=== PATIENT | female | born 1950 | race Caucasian/White ===

== ENCOUNTER 2022-07-30 00:22 | Emergency (ER) | payer MEDICARE, SELFPAY ==
[2022-07-30 00:42] VITALS: BP 146/74; PULSE 82; RESP 16; TEMP 36.3; O2SAT 97; BMI 42.0
[2022-07-30 01:31] LABS: Basophils Absolute Auto 0.03 K/uL (0.00-0.30); Basophils Percent Auto 0.3 % (0.0-3.0); Eosinophils Absolute Auto 0.18 K/uL (0.00-0.50); Eosinophils Percent Auto 1.8 % (0.0-7.0); Hematocrit 42.1 % (33.0-51.0); Hemoglobin* 13.3 gm/dL (12.0-16.0); Immature Granulocytes Abs Auto 0.07 K/uL (0.00-0.30); Immature Granulocytes Pct Auto 0.7 %; Lymphocytes Percent Auto 15.5 % (20-44); Mean Corpuscular HGB Conc 32 gm/dL (32-36); Mean Corpuscular Hemoglobin 25 pg (26-34); Mean Corpuscular Volume 80 fL (80-100); Monocytes Percent Auto 9.2 % (0.0-11.0); Neutrophils Percent Auto 72.5 % (42.0-72.0); Platelet Count* 341 K/uL (140-440); RDW Coefficient of Variation % 13.9 % (11.5-15.5); Red Blood Count 5.25 m/uL (4.00-5.20); White Blood Count* 9.81 K/uL (4.50-11.00)
[2022-07-30 01:32] LABS: Slide Review Reflex No
[2022-07-30 01:42] LABS: Chloride* 107 mmol/L (96-114)
[2022-07-30 01:43] LABS: Potassium* 4.5 mmol/L (3.6-5.1); Sodium* 138 mmol/L (135-149)
[2022-07-30 01:45] LABS: Creatinine* 0.8 mg/dL (0.5-1.5); Est. Creatinine Clearance* 42.07; Estimated Glomerular Filt Rate 78 ml/min
[2022-07-30 01:46] LABS: Blood Urea Nitrogen* 21 mg/dL (7-30); Calcium* 9.4 mg/dL (8.4-10.6); Carbon Dioxide* 21 mmol/L (20-32); Glucose* 249 mg/dL (60-115)
[2022-07-30 01:49] LABS: C Reactive Protein* 4.7 mg/dL (0.5-1.0)
[2022-07-30 02:04] LABS: Procalcitonin* 0.09 ng/mL (<0.50)
[2022-07-30 02:30] VITALS: BP 152/61; PULSE 80; RESP 16; O2SAT 96; O2SAT 97
[2022-07-30] MEDS: fentaNYL 100 MCG/2 ML inj 50 MCG IVP (02:31)
[2022-07-30 03:36] VITALS: BP 121/61; PULSE 84; RESP 16
--- NOTE | 2022-07-30 09:10 | ED.SKABFB ---
HPI - Skin/Abscess/Foreign Bdy General Chief complaint: Skin/Abscess/Foreign Body Stated complaint: Left Leg Pain, cellulitis Time Seen by Provider: 07/30/22 00:51 History of Present Illness HPI narrative: 72-year-old woman presenting to the emergency department with complaint of a burning pain and concern of infection in her left lower leg. She has not had any fever. There has been no drainage from this area. Was apparently seen last week and initiated on cephalexin and after I believe 2 days was transitioned to Bactrim after calling in and noting that not improving. She has had about 3 days of Bactrim. Three days ago started to notice a ?blister? as well on the left mid estevez area. Pain continues to escalate. Notes a history of some peripheral edema and what sounds like related darkening. There was also a ?spider bite? with still with lingering discomfort at times in the right leg. She is worried further about infection understandably due to history of diabetes. Related Data Home Medications Medication Instructions Recorded Confirmed amlodipine 5 mg tablet mg 07/30/22 blood sugar diagnostic (OneTouch 07/30/22 07/30/22 Ultra Test strips) dorzolamide 2 % eye drops drp 07/30/22 furosemide 20 mg tablet mg 07/30/22 glipizide 10 mg tablet, extended mg PO 07/30/22 release 24 hr losartan 100 mg tablet mg 07/30/22 metformin 500 mg tablet,extended mg PO 07/30/22 release 24 hr pravastatin 20 mg tablet mg 07/30/22 sitagliptin phosphate 100 mg mg 07/30/22 tablet (Januvia) sulfamethoxazole 800 tab 07/30/22 mg-trimethoprim 160 mg tablet Previous Rx's Medication Instructions Recorded sulfamethoxazole 800 1 tab PO BID 4 days #8 tabs 07/30/22 mg-trimethoprim 160 mg tablet (Bactrim DS) Allergies Allergy/AdvReac Type Severity Reaction Status Date / Time No Known Drug Allergies Allergy Verified 07/30/22 00:40 Review of Systems Status of ROS: Reports: 10 or more systems reviewed and unremarkable except as noted in History and below [facility] Social History Smoking Status: Never smoker Do you use any of these nicotine containing products: None Second hand tobacco smoke exposure: No How often do you have a drink containing alcohol: never How often do you have six or more drinks on one occasion: Never AUDIT-C Alcohol total score: 0 Non-prescribed substance use: denies use service: No Exam Narrative: Exam Narrative: Pleasant. Mildly anxious I think clearly rather uncomfortable. Is breathing easily. Slight darkening on the anterior right lower leg with subtle depression consistent with ex formation once upon a time. There is mild hemosiderin deposition with mild lower extremity edema here. The left leg, the leg in more question here today, has a hand sized area of mild erythema and mild calor in the mid estevez which is nearly fully circumferential around the leg. Exquisitely tender to palpation. She looks to have been placing some antibiotic ointment upon it as it is slightly greasy. On the medial edge of this estevez in the center of this erythema is a marble-sized swelling that is generally tense and exquisitely tender. Very subtle appearance of what might be a white punctum or 2 indicating possible purulence. Initial evaluation though I could not appreciate any fluctuant tissue. She is so tender it is hard to tell. She is moving all extremities without difficulty. Const: Vital Signs, click to edit/add: Vital Signs - 24 hr 07/30/22 00:42 07/30/22 02:30 07/30/22 03:36 Temperature 97.3 F L Pulse Rate [Left] 82 80 84 Respiratory Rate 16 16 16 Blood Pressure [Le ft Upper Arm] 146/74 H 152/61 H 121/61 Pulse Oximetry 97 97 Oxygen Delivery Me thod Room Air Documenting provider has reviewed patient's vital signs: yes Course Vital Signs Vital signs: Initial Vital Signs Temperature 97.3 F L 07/30/22 00:42 Temperature Source Temporal Artery Scan 07/30/22 00:42 Pulse Rate 82 07/30/22 00:42 Respiratory Rate 16 07/30/22 00:42 Blood Pressure 146/74 H 07/30/22 00:42 Blood Pressure Mean 98 07/30/22 00:42 Pulse Oximetry 97 07/30/22 00:42 Oxygen Delivery Method 07/30/22 00:42 Vital Signs Temperature 97.3 F L 07/30/22 00:42 Pulse Rate 82 07/30/22 00:42 Respiratory Rate 16 07/30/22 00:42 Blood Pressure 146/74 H 07/30/22 00:42 Pulse Oximetry 97 07/30/22 00:42 Oxygen Delivery Method 07/30/22 00:42 Temperature 97.3 F L 07/30/22 00:42 Pulse Rate 84 07/30/22 03:36 Respiratory Rate 16 07/30/22 03:36 Blood Pressure 121/61 07/30/22 03:36 Pulse Oximetry 97 07/30/22 02:30 Oxygen Delivery Method 07/30/22 00:42 MDM - Skin/Abscess/Foreign Bdy MDM Narrative Medical decision making narrative: I propose checking some labs and puzzled about this swelling. So tender almost like an erythema nodosum but there has been no precipitant to cause that; no sore throat or other illness like this. Return later to re-evaluate. There is a subtle fluctuance medial aspect of this swelling. I then place a bedside ultrasound and does appear to have marble-sized area of fluid collection heterogeneous within a cm and half of the surface. Surrounding edematous tissue. White count is not elevated however CRP is elevated at 4.7. Procalcitonin is normal IV has already been established. Anticipating intervention at least needling looking for purulence perhaps, I offer some pain medication in the form of fentanyl. She decides to proceed with that. Cleansing the area with Betadine, I had anticipated plunging an 11 blade however perhaps better course of action is an 18 gauge needle. Easily remove quickly an mL and a half of tanya purulence. And then place lidocaine with epinephrine further anesthesia. Incise the wound a little more with an 11 blade to total of about a cm in diagonal length. Expressing further small amount of purulence until only blood. I do not feel that would be a good idea to dig around to break up loculations here due to pain in generally not much depth. Unusual location for abscess I think given general lack of depth as well. Wound culture was collected. Pending results would continue on Bactrim. Lab Data Attestation: I reviewed the patient's lab results. Labs: Lab Results 07/30/22 07/30/22 Range/Units 01:20 01:20 WBC 9.81 (4.50-11.00) K/uL RBC 5.25 H (4.00-5.20) m/uL Hgb 13.3 (12.0-16.0) gm/dL Hct 42.1 (33.0-51.0) % MCV 80 (80-100) fL MCH 25 L (26-34) pg MCHC 32 (32-36) gm/dL RDW Coeff of Katie 13.9 (11.5-15.5) % Plt Count 341 (140-440) K/uL Neut % (Auto) 72.5 H (42.0-72.0) % Lymph % (Auto) 15.5 L (20-44) % [place] % (Auto) 9.2 (0.0-11.0) % Eos % (Auto) 1.8 (0.0-7.0) % Baso % (Auto) 0.3 (0.0-3.0) % Neut # (Auto) 7.10 H (1.7-7.0) K/uL Lymph # (Auto) 1.50 (0.90-2.90) K/uL [place] # (Auto) 0.90 (0.00-0.90) K/UL Eos # (Auto) 0.18 (0.00-0.50) K/uL Baso # (Auto) 0.03 (0.00-0.30) K/uL Sodium 138 (135-149) mmol/L Potassium 4.5 (3.6-5.1) mmol/L Chloride 107 (96-114) mmol/L Carbon Dioxide 21 (20-32) mmol/L BUN 21 (7-30) mg/dL Creatinine 0.8 (0.5-1.5) mg/dL Estimated Creat Clear 42.07 Estimated GFR 78 ml/min Glucose 249 H (60-115) mg/dL Calcium 9.4 (8.4-10.6) mg/dL C-Reactive Protein 4.7 H (0.5-1.0) mg/dL Procalcitonin 0.09 (<0.50) ng/mL Discharge Plan Discharge Clinical Impression: Cellulitis, Abscess of left leg Patient Disposition: Home w/ Parent or Adult Condition: Improved Instructions: Cellulitis (ED), Abscess Incision and Drainage (DC) Additional Instructions: Hopefully draining this abscess will get things going the right direction. I would keep taking the Bactrim for now. We will call you if Bactrim is not the right drug depending on the wound culture. Otherwise once you get to the end of the Bactrim prescription go to the pharmacy and cloth picker the remainder of the course. Do your best to keep your leg elevated at rest. Depending on how much ooze comes out of the wound, change dressing daily. Return for marked increase in pain, swelling, redness, pain that does not resolve after 2 hours of good elevation. Do report fever. Prescriptions: New sulfamethoxazole-trimethoprim [Bactrim DS] 800-160 mg tablet 1 tab PO BID 4 Days Qty: 8 0RF No Action glipizide 10 mg tablet extended release 24hr PO Label Comments: TAKE TWO TABLETS BY MOUTH DAILY (DME) OneTouch Ultra Test Strip MISCELLANEOUS Label Comments: use to TEST 1-2 TIMES DAILY amlodipine 5 mg tablet Label Comments: TAKE ONE TABLET BY MOUTH ONE TIME DAILY sulfamethoxazole-trimethoprim 800-160 mg tablet Label Comments: TAKE ONE TABLET BY MOUTH TWICE DAILY FOR 7 DAYS pravastatin 20 mg tablet Label Comments: TAKE ONE TABLET BY MOUTH ONE TIME DAILY AT BEDTIME furosemide 20 mg tablet Label Comments: TAKE ONE TABLET BY MOUTH EVERY DAY IN THE MORNING. losartan 100 mg tablet Label Comments: TAKE ONE TABLET BY MOUTH ONE TIME DAILY metformin 500 mg tablet extended release 24 hr PO Label Comments: TAKE TWO TABLETS BY MOUTH TWICE DAILY WITH FOOD dorzolamide 2 % drops Label Comments: Place 1 Drop into right eye 3 times daily Januvia 100 mg tablet Label Comments: TAKE ONE TABLET BY MOUTH ONE TIME DAILY Follow Up/Referrals: Ema Parsons MD [Primary Care Provider] - Stand Alone [facility]
== END 2022-07-30 03:37 | disposition home or self-care (01) ==
PROVIDERS: Emergency Provider Family Medicine; PCP Family Medicine
DX: L03.116 Cellulitis of left lower limb (principal); L02.416 Cutaneous abscess of left lower limb
CPT/HCPCS: 10060; 36415; 80048; 84145; 85025; 86140; 87070; 94761; 96374; 99284; J3010

== ENCOUNTER 2022-08-23 08:00 | Outpatient (CLI) | payer MEDICARE, SELFPAY | END 2022-08-23 08:01 | disposition home or self-care (01) | PROVIDERS: PCP Family Medicine; Visit Provider Nurse Practitioner Family | DX: E11.622 Type 2 diabetes mellitus with other skin ulcer (principal); I87.2 Venous insufficiency (chronic) (peripheral); L97.322 Non-pressure chronic ulcer of left ankle with fat layer exposed; Z79.84 Long term (current) use of oral hypoglycemic drugs | CPT/HCPCS: 11042; 99213 ==

== ENCOUNTER 2022-08-30 10:17 | Outpatient (CLI) | payer MEDICARE, SELFPAY | END 2022-08-30 10:18 | disposition home or self-care (01) | LOC: WOUND 10:17 | PROVIDERS: PCP Family Medicine; Visit Provider Nurse Practitioner Family | DX: I87.312 Chronic venous hypertension (idiopathic) with ulcer of left lower extremity (principal); E11.622 Type 2 diabetes mellitus with other skin ulcer; L97.322 Non-pressure chronic ulcer of left ankle with fat layer exposed; Z79.84 Long term (current) use of oral hypoglycemic drugs | CPT/HCPCS: 11042 ==

== ENCOUNTER 2022-09-06 10:25 | Outpatient (CLI) | payer MEDICARE, SELFPAY | END 2022-09-06 10:26 | disposition home or self-care (01) | LOC: WOUND 10:25 | PROVIDERS: PCP Family Medicine; Visit Provider Nurse Practitioner Family | DX: I87.312 Chronic venous hypertension (idiopathic) with ulcer of left lower extremity (principal); E11.622 Type 2 diabetes mellitus with other skin ulcer; L97.822 Non-pressure chronic ulcer of other part of left lower leg with fat layer exposed; Z79.84 Long term (current) use of oral hypoglycemic drugs; Z79.85 Long-term (current) use of injectable non-insulin antidiabetic drugs | CPT/HCPCS: 11042 ==

== ENCOUNTER 2022-09-13 10:16 | Outpatient (CLI) | payer MEDICARE, SELFPAY | END 2022-09-13 10:17 | disposition home or self-care (01) | LOC: WOUND 10:16 | PROVIDERS: PCP Family Medicine; Visit Provider Nurse Practitioner Family | DX: I87.312 Chronic venous hypertension (idiopathic) with ulcer of left lower extremity (principal); L97.322 Non-pressure chronic ulcer of left ankle with fat layer exposed; I87.2 Venous insufficiency (chronic) (peripheral) | CPT/HCPCS: 11042 ==

== ENCOUNTER 2022-09-27 10:16 | Outpatient (CLI) | payer MEDICARE, SELFPAY | END 2022-09-27 10:17 | disposition home or self-care (01) | LOC: WOUND 10:17 | PROVIDERS: PCP Family Medicine; Visit Provider Nurse Practitioner Family | DX: E11.622 Type 2 diabetes mellitus with other skin ulcer (principal); L97.322 Non-pressure chronic ulcer of left ankle with fat layer exposed; I87.2 Venous insufficiency (chronic) (peripheral); Z79.84 Long term (current) use of oral hypoglycemic drugs; Z79.85 Long-term (current) use of injectable non-insulin antidiabetic drugs | CPT/HCPCS: 99212 ==

== ENCOUNTER 2023-09-06 10:15 | Outpatient (RCR) | payer MEDICARE, SELFPAY | END 2024-01-04 23:59 | disposition home or self-care (01) | PROVIDERS: PCP Family Medicine; Visit Provider Family Medicine | DX: R10.32 Left lower quadrant pain (principal); Z51.89 Encounter for other specified aftercare | CPT/HCPCS: 97110; 97140; 97162 ==

== ENCOUNTER 2023-09-21 21:47 | Emergency (ER) | payer MEDICARE, SELFPAY ==
[2023-09-21 22:11] VITALS: BP 153/67; PULSE 93; RESP 22; TEMP 36.7; O2SAT 95; BMI 40.1
[2023-09-21] MEDS: DOCUSATE SODIUM/BENZOCAINE 5 ML ENEMA PR ×2 (22:35→23:03)
--- NOTE | 2023-09-21 22:47 | ED_ITS ---
HPI - General Adult General Date Seen: 09/21/23 Chief complaint: Constipation Stated complaint: Post-surgery- Constipated and now has hemorrhoid. Time Seen by Provider: 09/21/23 22:28 Source: patient Mode of arrival: ambulatory Limitations: no limitations History of Present Illness HPI narrative: Patient is a 73-year-old woman who had thyroid surgery on September 12. She says she has been taking a lot of pain medications and has been unable to have a bowel movement since her surgery. She does not have significant abdominal pain, nausea or vomiting. She has rectal pain which she attributes to hemorrhoids. She has not had fevers, difficulty breathing, or other complaints. Surgery was for thyroid cancer. Related Data Home Medications Medication Instructions Recorded Confirmed amlodipine 5 mg tablet mg 07/30/22 blood sugar diagnostic (OneTouch 07/30/22 07/30/22 Ultra Test strips) dorzolamide 2 % eye drops drp 07/30/22 furosemide 20 mg tablet mg 07/30/22 glipizide 10 mg tablet, extended mg PO 07/30/22 release 24 hr losartan 100 mg tablet mg 07/30/22 metformin 500 mg tablet,extended mg PO 07/30/22 release 24 hr pravastatin 20 mg tablet mg 07/30/22 sitagliptin phosphate 100 mg mg 07/30/22 tablet (Januvia) sulfamethoxazole 800 tab 07/30/22 mg-trimethoprim 160 mg tablet Previous Rx's Medication Instructions Recorded sulfamethoxazole 800 1 tab PO BID 4 days #8 tabs 07/30/22 mg-trimethoprim 160 mg tablet (Bactrim DS) Allergies Allergy/AdvReac Type Severity Reaction Status Date / Time No Known Drug Allergies Allergy Verified 09/21/23 22:14 Review of Systems Status of ROS: Reports: 6 or more systems reviewed and unremarkable except as noted in History and below PFSH PFS Social History Smoking Status: Never smoker Do you use any of these nicotine containing products: None Second hand tobacco smoke exposure: No How often do you have a drink containing alcohol: never How often do you have six or more drinks on one occasion: Never AUDIT-C Alcohol total score: 0 Non-prescribed substance use: denies use service: No Exam Narrative: Exam Narrative: Vital signs as noted above. In general, an alert, nontoxic woman. Breathing easily. Head: Normocephalic, atraumatic. Eyes: Pupils are equal reactive. Extraocular movements are full. Conjunctivae are normal. ENT: Mucous membranes are moist. Neck: Supple without lymphadenopathy. Heart: Regular rate and rhythm. No murmur or rub. Lungs: Clear bilaterally. No increased work of breathing, crackles or wheezes. Abdomen: Soft and nontender. Obese. Rectal: She does not have significant external hemorrhoids. I do palpate a couple of internal hemorrhoids. Fecal impaction in the rectum. Extremities: Well perfused. No edema. No calf tenderness. Pulses intact. Neurologic: Patient is alert and oriented to person and place. Speech is fluent. Face is symmetric. Moves all extremities equally. Affect: Normal. Skin: Warm and dry. Well perfused. Const: Vital Signs, click to edit/add: Vital Signs - 24 hr 09/21/23 22:11 Temperature 98.0 F Pulse Rate [Right Pulse Oximeter] 93 Respiratory Rate 22 Blood Pressure [Ri ght Upper Arm] 153/67 H Pulse Oximetry 95 Oxygen Delivery Me thod Room Air Documenting provider has reviewed patient's vital signs: yes Course Course ED Course: We gave an Enemeez here with small result. Will go ahead and tried to disimpact her and see if she tolerates this. Her abdominal exam is benign, symptoms seem to be consistent with simple constipation/fecal impaction. Patient had disimpaction x2, had an Enemeez, fleets followed by tap water enema. She did ultimately have fairly good results, is feeling much more comfortable and prepared to go home. We have talked about MiraLax, fluids. She will minimize use of oxycodone. See primary care for ongoing concerns. Return any time for acute worsening such as significant abdominal pain, vomiting, fevers or other worsening. Vital Signs Vital signs: Initial Vital Signs Temperature 98.0 F 09/21/23 22:11 Temperature Source Temporal Artery Scan 09/21/23 22:11 Pulse Rate 93 09/21/23 22:11 Respiratory Rate 22 09/21/23 22:11 Blood Pressure 153/67 H 09/21/23 22:11 Blood Pressure Mean 95 09/21/23 22:11 Blood Pressure Position Sitting 09/21/23 22:11 Pulse Oximetry 95 09/21/23 22:11 Oxygen Delivery Method Room Air 09/21/23 22:11 Vital Signs Temperature 98.0 F 09/21/23 22:11 Pulse Rate 93 09/21/23 22:11 Respiratory Rate 22 09/21/23 22:11 Blood Pressure 153/67 H 09/21/23 22:11 Pulse Oximetry 95 09/21/23 22:11 Oxygen Delivery Method Room Air 09/21/23 22:11 Temperature 98.0 F 09/21/23 22:11 Pulse Rate 93 09/21/23 22:11 Respiratory Rate 22 09/21/23 22:11 Blood Pressure 153/67 H 09/21/23 22:11 Pulse Oximetry 95 09/21/23 22:11 Oxygen Delivery Method Room Air 09/21/23 22:11 Medications Administered Medications: Discontinued Medications Generic Name Dose Route Start Last Admin Trade Name Freq PRN Reason Stop Dose Admin Docusate Sodium/Benzocaine 5 ml 09/21/23 22:28 09/21/23 22:35 Docusate Sodium/Benzocaine 5 Ml Enema PA 09/21/23 22:29 5 ml ONCE ONE Administration Docusate Sodium/Benzocaine 5 ml 09/21/23 22:58 09/21/23 23:03 Docusate Sodium/Benzocaine 5 Ml Enema PA 09/21/23 22:59 5 ml ONCE ONE Administration Discharge Plan Discharge Clinical Impression: Fecal impaction in rectum Patient Disposition: Home, Self-Care Condition: Improved Instructions: Fecal Impaction (ED) Additional Instructions: Increase fluids as much as you are able to. I would recommend MiraLax one capful twice a day for the next few days, or until stools are easy to pass without tanya diarrhea. For new symptoms such as vomiting, fevers, significant pain, return to the emergency department. Follow up with primary care as needed for persistent symptoms. If possible, avoid further use of oxycodone. Prescriptions: No Action glipizide 10 mg tablet extended release 24hr PO Patient Comments: TAKE TWO TABLETS BY MOUTH DAILY (DME) OneTouch Ultra Test Strip MISCELLANEOUS Patient Comments: use to TEST 1-2 TIMES DAILY amlodipine 5 mg tablet Patient Comments: TAKE ONE TABLET BY MOUTH ONE TIME DAILY sulfamethoxazole-trimethoprim 800-160 mg tablet Patient Comments: TAKE ONE TABLET BY MOUTH TWICE DAILY FOR 7 DAYS pravastatin 20 mg tablet Patient Comments: TAKE ONE TABLET BY MOUTH ONE TIME DAILY AT BEDTIME furosemide 20 mg tablet Patient Comments: TAKE ONE TABLET BY MOUTH EVERY DAY IN THE MORNING. losartan 100 mg tablet Patient Comments: TAKE ONE TABLET BY MOUTH ONE TIME DAILY metformin 500 mg tablet extended release 24 hr PO Patient Comments: TAKE TWO TABLETS BY MOUTH TWICE DAILY WITH FOOD dorzolamide 2 % drops Patient Comments: Place 1 Drop into right eye 3 times daily Januvia 100 mg tablet Patient Comments: TAKE ONE TABLET BY MOUTH ONE TIME DAILY sulfamethoxazole-trimethoprim [Bactrim DS] 800-160 mg tablet 1 tab PO BID 4 Days Qty: 8 0RF Follow Up/Referrals: Ema Parsons MD [Primary Care Provider] - Stand Alone Forms: [facility] Info Instructions
--- NOTE | 2023-09-21 23:42 | ED.NURSE ---
Enemeez inserted into pt rectum without relief. Pt manually disimpacted per verbal MD order. Multiple small one inch pieces of thick stool removed from pt rectum without relief of stool burden. Second enemeez inserted without relief. Mineral oil enema then inserted without relief. Pt manually disimpacted a second time per request of pt. Multiple small one inch pieces of thick stool removed again without relief of stool burden. MD updated. MD in room to discuss how pt would like to move forward. Plan to go forward with larger enema. Larger volume of warm water and castile soap enema inserted into pt rectum. Pt holding enema in rectum and laying on side.
== END 2023-09-22 00:54 | disposition home or self-care (01) ==
PROVIDERS: Emergency Provider Emergency Medicine; PCP Family Medicine
DX: K56.41 Fecal impaction (principal)
CPT/HCPCS: 99283; 99284; A9270

== ENCOUNTER 2023-11-12 12:33 | Outpatient (RCR) | payer MEDICARE, SELFPAY | END 2024-03-11 23:59 | disposition home or self-care (01) | PROVIDERS: PCP Family Medicine; Visit Provider Family Medicine | DX: Z53.20 Procedure and treatment not carried out because of patient's decision for unspecified reasons (principal) ==

== ENCOUNTER 2023-12-11 09:59 | Outpatient (CLI) | payer MEDICARE, SELFPAY ==
--- NOTE | 2023-12-11 10:15 | FL_ITS ---
Patient: MARITO CANO Facility:?[facility] Patient ID:?[id number] Site Patient ID:?[id number]. Site :?[id number] Study:?XRay-Abdomen Barium swollow modified to sonal-12/11/2023 10:47:53 AM Ordering Physician:?RONAK WALKER Final Report: INDICATION: Dysphagia TECHNIQUE: Modified barium swallow. Fluoroscopic time 1 minute 34 seconds. FINDINGS/IMPRESSION: Anatomical structures are normal. Swallowing mechanism appears within normal limits. No episodes of penetration or aspiration. No significant findings. Dictated by Stefan Gray MD @ 12/11/2023 12:47:29 PM Signed by:?Stefan Gray MD @12/11/2023 12:47:29 PM (Electronic Signature)
== END 2023-12-11 10:00 | disposition home or self-care (01) ==
LOC: RAD 10:00
PROVIDERS: PCP Family Medicine; Visit Provider Family Medicine
DX: R13.10 Dysphagia, unspecified (principal); E89.0 Postprocedural hypothyroidism
CPT/HCPCS: 74230; 92611

== ENCOUNTER 2023-12-14 21:25 | Emergency (ER) | payer MEDICARE, SELFPAY ==
[2023-12-14 21:42] VITALS: BP 114/68; PULSE 83; RESP 16; TEMP 36.6; O2SAT 96; BMI 38.6
--- NOTE | 2023-12-14 22:15 | ED_ITS ---
HPI - General Adult General Chief complaint: Unspecified Complaint, Adult Stated complaint: jittery Time Seen by Provider: 12/14/23 22:06 History of Present Illness HPI narrative: Is a 73-year-old woman who does not feel well since being started on Ozempic. She has general malaise and fatigue but has been eating and drinking normally. She states her blood sugars have been reasonably well regulated but she is on a host of medications as listed. Patient also had thyroid cancer resected several months ago was on thyroid replacement. She called [facility] a Nurse and was told him and have her thyroid studies checked immediately. She has some tremulousness but no chest pain shortness a breath orthopnea no PND no nausea no vomiting. Related Data Home Medications Medication Instructions Recorded Confirmed amlodipine 5 mg tablet 10 mg 07/30/22 blood sugar diagnostic (OneTouch 07/30/22 07/30/22 Ultra Test strips) dorzolamide 2 % eye drops drp 07/30/22 glipizide 10 mg tablet, extended mg PO 07/30/22 release 24 hr losartan 100 mg tablet mg 07/30/22 metformin 500 mg tablet,extended 1,000 mg PO BID 07/30/22 12/14/23 release 24 hr pravastatin 20 mg tablet 20 mg 07/30/22 chlorthalidone 25 mg tablet 25 mg PO DAILY 12/14/23 12/14/23 famotidine 20 mg tablet 20 mg PO BID 12/14/23 12/14/23 levothyroxine 137 mcg tablet 137 mcg PO QAM 12/14/23 12/14/23 Allergies Allergy/AdvReac Type Severity Reaction Status Date / Time No Known Drug Allergies Allergy Verified 09/21/23 22:14 Review of Systems Status of ROS: Reports: 10 or more systems reviewed and unremarkable except as noted in History and below [facility] Social History Smoking Status: Never smoker Do you use any of these nicotine containing products: None Second hand tobacco smoke exposure: No How often do you have a drink containing alcohol: never How often do you have six or more drinks on one occasion: Never AUDIT-C Alcohol total score: 0 Non-prescribed substance use: denies use service: No Exam Narrative: Exam Narrative: EXAM GENERAL: Patient appears comfortable and well. EYES: No scleral icterus. ENT: Tympanic membranes and oropharynx normal. THYROID: no thyroid nodules or thyromegaly. LYMPH: No supraclavicular or cervical lymphadenopathy. SKIN: Visible skin seen during exam normal or with benign process only. EXT: No dependent lower extremity pedal edema. HEART: Regular rate and rhythm with no murmurs, rubs, or gallops. LUNGS: Clear to auscultation bilaterally with no crackles or wheezes. ABD: Soft, non tender, non distended. PSYCH: Good eye contact, speech is not pressured. Const: Vital Signs, click to edit/add: Vital Signs - 24 hr 12/14/23 21:42 Temperature 97.9 F Pulse Rate [Pulse Oximeter] 83 Respiratory Rate 16 Blood Pressure [Ri ght Upper Arm] 114/68 Pulse Oximetry 96 Oxygen Delivery Me thod Room Air Course Course ED Course: The patient seen and examined. Vital Signs Vital signs: Initial Vital Signs Temperature 97.9 F 12/14/23 21:42 Temperature Source Temporal Artery Scan 12/14/23 21:42 Pulse Rate 83 12/14/23 21:42 Respiratory Rate 16 12/14/23 21:42 Blood Pressure 114/68 12/14/23 21:42 Blood Pressure Mean 83 12/14/23 21:42 Blood Pressure Position Sitting 12/14/23 21:42 Pulse Oximetry 96 12/14/23 21:42 Oxygen Delivery Method Room Air 12/14/23 21:42 Vital Signs Temperature 97.9 F 12/14/23 21:42 Pulse Rate 83 12/14/23 21:42 Respiratory Rate 16 12/14/23 21:42 Blood Pressure 114/68 12/14/23 21:42 Pulse Oximetry 96 12/14/23 21:42 Oxygen Delivery Method Room Air 12/14/23 21:42 Temperature 97.9 F 12/14/23 21:42 Pulse Rate 83 12/14/23 21:42 Respiratory Rate 16 12/14/23 21:42 Blood Pressure 114/68 12/14/23 21:42 Pulse Oximetry 96 12/14/23 21:42 Oxygen Delivery Method Room Air 12/14/23 21:42 Medical Decision Making MDM Narrative Medical decision making narrative: Patient is a very nice 73-year-old woman who comes in tonight feeling tremulous after taking her Ozempic several days ago. She had a similar response previously. She called [facility] a Nurse and was told to come in immediately to have her thyroid checked. We did have a nice conversation and she has a completely normal exam and normal vital signs. We did agree to send off some labs and follow up with her if they are abnormal. I also recommended follow-up with her primary physician later in the week and no further doses of Ozempic. Differential diagnosis includes but not limited to thyroid storm side effect from medication anemia hyperglycemia renal insufficiency anxiety Discharge Plan Discharge Additional Instructions: We will contact you few labs are abnormal. I would recommend no further doses of Ozempic. Would recommend follow-up with your doctor to discuss further management of your a thyroid and diabetes status. Activity Level: No Restrictions Discharge Diet: Regular Prescriptions: No Action glipizide 10 mg tablet extended release 24hr PO Patient Comments: TAKE TWO TABLETS BY MOUTH DAILY (DME) OneTouch Ultra Test Strip MISCELLANEOUS Patient Comments: use to TEST 1-2 TIMES DAILY amlodipine 5 mg tablet 10 mg Patient Comments: TAKE ONE TABLET BY MOUTH ONE TIME DAILY pravastatin 20 mg tablet 20 mg Patient Comments: TAKE ONE TABLET BY MOUTH ONE TIME DAILY AT BEDTIME losartan 100 mg tablet Patient Comments: TAKE ONE TABLET BY MOUTH ONE TIME DAILY metformin 500 mg tablet extended release 24 hr 1,000 mg PO BID Patient Comments: TAKE TWO TABLETS BY MOUTH TWICE DAILY WITH FOOD dorzolamide 2 % drops Patient Comments: Place 1 Drop into right eye 3 times daily chlorthalidone 25 mg tablet 25 mg PO DAILY famotidine 20 mg tablet 20 mg PO BID levothyroxine 137 mcg tablet 137 mcg PO QAM Follow Up/Referrals: Jessy Avilez DO [Primary Care Provider] - Stand Alone Forms: [employer] Info Instructions
--- OUTSIDE RECORDS SUMMARY | 2023-12-14 22:21 | XMS_ITS | Clinical Summary ---
Author Name Unknown Organization [employer] Address [place], [place] [address] Care Team Providers Care Substance Addiction Coordinator Name Role Phone Jessy Avilez DO Primary Care Provider [phone] Allergies Active Allergy Reactions Criticality Noted Date Comments Empagliflozin Other - Describe In Comment Field 08/13/2022 Vaginal infection Medications Medication Sig Dispensed Refills Start Date End Date Status lancets (ONE TOUCH ULTRASOFT LANCETS)Indication s:Type 2 diabetes mellitus without complication (HC) Test 3 times daily 100 Each 3 02/23/2015 Active aspirin (ECOTRIN) 81 mg enteric coated tabletIndications: Type 2 diabetes mellitus without complication (HC) Take 1 tablet by mouth once daily with a meal. 90 tablet 1 12/06/2015 Active Blood Glucose Control High&Low solnIndications:Di abetes mellitus, type 2 (HC) As directed. 1 Bottle 08/19/2019 Active blood-glucose meterIndications:D iabetes mellitus, type 2 (HC) Dispense meter, test strips, lancets covered by pt ins. E11.9 NIDDM type II - Test 1 time/day 1 Device 08/19/2019 Active albuterol HFA (PRO-AIR; VENTOLIN; PROVENTIL) 90 mcg/actuation inhalerIndications :Cough Inhale 1-2 Puffs by mouth every 4 hours if needed. 1 Each 1 02/21/2021 Active nystatin powder (MYCOSTATIN) powderIndications: Intertrigo Apply 1 Strip topically to affected area(s) 3 times daily if needed (Yeast infection). 60 g 5 04/04/2022 Active furosemide (LASIX) 20 mg tabletIndications: Bilateral lower extremity edema Take 1 Tablet (20 mg) by mouth every morning. 90 Tablet 1 03/22/2023 Active losartan (COZAAR) 100 mg tabletIndications: Hypertension Take 1 Tablet (100 mg) by mouth once daily. 90 Tablet 2 03/22/2023 Active amLODIPine (NORVASC) 10 mg tabletIndications: HTN (hypertension) Take 1 Tablet (10 mg) by mouth once daily. 90 Tablet 3 07/25/2023 Active blood sugar diagnostic (NASOFORMuch Ultra Test) stripIndications:T ype 2 diabetes mellitus with diabetic neuropathy, without long-term current use of insulin (HC) use to TEST 1-2 TIMES DAILY. 200 Each 3 07/25/2023 Active chlorthalidone (HYGROTON) 25 mg tabletIndications: HTN (hypertension) Take 1 Tablet (25 mg) by mouth once daily. 90 Tablet 3 07/25/2023 Active famotidine (PEPCID) 20 mg tabletIndications: Gastroesophageal reflux disease, unspecified whether esophagitis present Take 1 Tablet (20 mg) by mouth two times daily. 180 Tablet 1 07/25/2023 Active glipiZIDE extended-release (GLUCOTROL XL) 10 mg Extended-Release tabletIndications: Type 2 diabetes mellitus with diabetic neuropathy, without long-term current use of insulin (HC) TAKE TWO TABLETS BY MOUTH DAILY 180 Tablet 1 07/25/2023 Active metFORMIN (GLUCOPHAGE XR) 500 mg Extended-Release tabletIndications: Type 2 diabetes mellitus with diabetic neuropathy, without long-term current use of insulin (HC) Take 2 Tablets (1,000 mg) by mouth two times daily with meals. 360 Tablet 3 07/25/2023 Active pravastatin (PRAVACHOL) 20 mg tabletIndications: Hyperlipidemia with target LDL less than 100 Take 1 Tablet (20 mg) by mouth at bedtime. 90 Tablet 1 07/25/2023 Active latanoprost (XALATAN) 0.005 % ophthalmic solutionIndication s:Pigmentary glaucoma of right eye, mild stage Place 1 Drop into both eyes once daily in the evening. 7.5 mL 1 08/15/2023 Active sennosides-docusat e (SENOKOT S) (8.6-50 mg) tabletIndications: Constipation, acute Take 1 Tablet by mouth 2 times daily if needed for Constipation. Start day of discharge from hospital. 20 Tablet 09/13/2023 Active acetaminophen (TYLENOL) 160 mg/5 mL suspensionIndicati ons:Postoperative pain Take 20.3 mL (649.6 mg) by mouth every 4 hours if needed for Pain. Max acetaminophen dose: 4000mg in 24 hrs. 400 mL 1 09/13/2023 Active ibuprofen (MOTRIN; ADVIL) 100 mg/5 mL suspensionIndicati ons:Postoperative pain Take 30 mL (600 mg) by mouth every 6 hours if needed for Pain. 400 mL 1 09/13/2023 Active cyclobenzaprine (FLEXERIL) 5 mg tabletIndications: Postoperative pain Take 1 Tablet (5 mg) by mouth every 8 hours if needed for Muscle Spasm. 15 Tablet 09/18/2023 Active SITagliptin phosphate (JANUVIA) 100 mg tabletIndications: Type 2 diabetes mellitus with diabetic neuropathy, without long-term current use of insulin (HC) Take 1 Tablet (100 mg) by mouth once daily. 90 Tablet 09/27/2023 Active semaglutide (Ozempic) 2 mg/3 mL penIndications:Typ e 2 diabetes mellitus with diabetic neuropathy, without long-term current use of insulin (HC) Inject 0.375 mL (0.25 mg) subcutaneous once weekly for 28 days, THEN 0.75 mL (0.5 mg) once weekly for 28 days. 3 mL 11/06/2023 01/01/20 24 Active semaglutide (OZEMPIC) 1 mg/dose (4 mg/3 mL) penIndications:Typ e 2 diabetes mellitus with diabetic neuropathy, without long-term current use of insulin (HC) Inject 1 mg subcutaneous once weekly for 28 days. 3 mL 01/01/2024 01/29/20 24 Active semaglutide (Ozempic) 2 mg/dose (8 mg/3 mL) penIndications:Typ e 2 diabetes mellitus with diabetic neuropathy, without long-term current use of insulin (HC) Inject 0.75 mL (2 mg) subcutaneous once weekly. 9 mL 3 01/29/2024 Active levothyroxine (Synthroid) 137 mcg tabletIndications: Papillary thyroid carcinoma (HC) Take 1 Tablet (137 mcg) by mouth before breakfast. 90 Tablet 3 11/07/2023 Active dorzolamide (TRUSOPT) 2 % ophthalmic solutionIndication s:Pigmentary glaucoma of right eye, indeterminate stage Place 1 Drop into both eyes two times daily. 10 mL 12/12/2023 Active dorzolamide (TRUSOPT) 2 % ophthalmic solutionIndication s:Pigmentary glaucoma of right eye, indeterminate stage Place 1 Drop into both eyes three times daily. 10 mL 10/16/2023 12/12/19 24 Discontinu ed(Reorder (E-cancel not sent)) Active Problems Problem Noted Date Diagnosed Date Acquired hypothyroidism 09/13/2023 Papillary thyroid carcinoma 09/12/2023 Depression, recurrent 03/23/2023 Aortic stenosis, mild 02/09/2021 Overview: ECHO 2017??mild (transvalvular velocity 2 to 2.9 m/s), echocardiography is recommended every three to five years Echocardiogram 2021, again shows mild aortic stenosis Osteoarthritis of knee 01/02/2021 Pigmentary glaucoma, right eye, moderate stage 0 04/14/2020 Multiple thyroid nodules 09/29/2018 Overview: Ultrasound 09/2018 - follow up in 12 months Bilateral lower extremity edema 06/02/2018 Bronchospasm 05/10/2018 Hyperopia of both eyes with astigmatism and pres byopia 08/12/2017 Nuclear senile cataract of both eyes 08/12/2017 Morbid obesity with BMI of 40.0-44.9, adult 05/30 Sarcoidosis 07/09/2012 Overview: Diagnosed 06/2012 Dermatochalasis 07/01/2012 Mediastinal lymphadenopathy 06/05/2012 Overview: CT 05/21/12 - will be seeing pulmonology on 06/11 ([facility]) Pulmonary nodules 06/05/2012 Overview: CT 11/2014 Bilateral pulmonary nodules measuring up to 6 mm, stable since 05/21/2012. No additional workup is necessary. Personal history of colonic polyps 08/22/2010 Overview: Colonoscopy 07/2010 normal repeat in 5 years Colonoscopy 01/2016 polyp repeat in 5 years Colonoscopy 06/2021 TA, repeat in 5 years, colowrap at hospital Type 2 diabetes mellitus wit h diabetic neuropathy, without long-term current use of insulin 04/21/2010 Overview: Loss of vibratory sense in 1st MTP joints Hypertension 08/12/2009 Chest pain 08/12/2009 [facility] GERD (gastroesophageal reflux disease) 0 Autoimmune Disease (specifics unknown) 0 healthcare maintenance 06/01/2008 Overview: LMP menopause Last Pap 03/30/05 Result WNL done 06/01/2008 Last Mammo 06/01/08 Last Colonoscopy 04/27/05 - repeat in 5 years Last DEXA 06/01/08 Last Td 06/01/2008 FAMILY HX OF MALIG NEOPLSM OF GI TRACT 7 Overview: colonoscopy 2004 Rheumatoid arthritis(714.0) 07/11/2007 Overview: Previously tried on Methotrexate, Sulfasalazine, Plaquenil and Prednisone. Previously on Methotrexate - liver abnormalities. Saw [facility] Specialist at [facility] Vitreous degeneration 01/08/2006 Overview: R Hyperlipidemia LDL goal < 100 Encounters Date Type Department Care Team Description 12/14/2023 Nurse Triage [facility] [address] [place] [address] Jessy Avilez DO 12/12/2023 1:40 PM CDT Office Visit [facility] [place] [facility] [address] [place] [address] David Mehta OD Follow Up (DM 4 Month IOP Ck ) 12/12/2023 Travel 11/22/2023 1:00 PM CDT Patient Outreach [facility] [address] [place] [address] Juanis Hinson airway traffic controller (Med management F/U) 11/22/2023 Travel 11/15/2023 Telephone [facility] [address] [place] [address] Shaqra, Jessy Mattie, DO Referral (Video swallow study) 11/15/2023 Telephone [facility] [address] [place] [address] Jessy Avilez, DO OTHER 11/08/2023 Telephone [facility] [address] [place] [address] Jessy Avilez Mattie, DO Questions (voice therapy) 11/08/2023 Telephone [facility] [address] [place] [address] Jessy Avilez, DO orders 11/07/2023 Telephone [facility] [address] [place] [address] Jeyson Borjas MD Phone Visit 11/05/2023 Telephone [facility] [address] [place] [address] Jessy Avilez, DO Follow Up 11/04/2023 10:30 AM CDT Office Visit [facility] [address] [place] [address] Jeyson Borjas MD Consult (thyroid) 11/04/2023 Travel 10/14/2023 Refill [facility] [place] [facility] [address] [place] [address] David Mehta, OD Refill Request (Dorzolamide) 10/09/2023 Telephone [facility] [address] [place] [address] Jessy Avilez, Appointment 10/08/2023 11:00 AM CDT Office Visit [address] [address] Jessy Avilez, DO Diabetes (3 month check); Throat Problem (Pt reports hoarseness/loss of voice since surgery - was also having trouble swallowing, just restarted Metformin 1 week ago) 10/08/2023 Travel 10/03/2023 Telephone [facility] [address] [place] [address] Jessy Avilez, DO Follow Up 09/27/2023 Telephone [facility] [address] [place] [address] Yoseph Salgado MD Letter (CALCIUM ) 09/27/2023 Telephone [facility] [address] [place] [address] Jessy Avilez, DO Questions 09/18/2023 1:30 PM TAG METER OPERATOR Office Visit [facility] [address] [place] [address] Yoseph Salgado MD Post-op 09/18/2023 Telephone [facility] [address] [place] [address] Yoseph Salgado MD Results (labs) 09/18/2023 Travel from Last 3 Months Immunizations Name Administration Dates Next Due AMB INFLUENZA IIV3 (AGE 65+ YRS) PF (Flu Clinic Only) 06/11/2017 COVID-19 vaccine ([employer] NTFeedo 30mcg/0.3mL) PF, MDV 05/03/2021,10/21/2020,09/30/2020 Influenza A (H1N1), Inactiva bina (Age >=3 Years) 07/15/2009 Influenza Virus, Unspecified 05/31/2003 Influenza, High-dose Inactivated 04/29/2020,04/29,04/11/2015 Influenza, High-dose Quadriv alent Inactivated 05/22/2023,05/04/2022,05/25/2021 Influenza, IIV3 (Age >=3 years) 08/10/19 14,08/11/2012,08/27/2011,2009,06/08/2008,06/29/2005 Influenza, Inactivated IIV3 (Age 65+ Years) Preserv Free 06/04/2019,05/19/2018 Pneumococcal Poly,23-Valent (Pneumovax) 06/22/2016,06/01/2008 Pneumococcal conj 13-Valent (Prevnar 13) 04/11/2015 Td (Age >=7 Years) 09/29/2018,05/31/2003 Tdap 06/01/2008 Zoster (Shingrix-RZV, recombinant) 01/22/2019, Zoster (Zostavax-ZVL, live) 02/07/2012 Family History Medical History Relation Name Comments Cancer Brother Bladder; Dx @ 6 8 Asthma Father Cancer-colon Father age 72 Diabetes Maternal Aunt Heart Disease Maternal Grandfather Heart Disease Maternal Uncle age 54 Cancer Mother lung Hypertension Mother Cancer-breast No Family History Relation Name Status Comments Brother Father Maternal Aunt Maternal Grandfather Maternal Uncle Mother Social History Tobacco Use Types Packs/Day Years Used Date Smoking Tobacco: Never Passive Smoke Exposure: Yes Smokeless Tobacco: Never Tobacco Cessation:Counseling Given: Yes Comments: smokes outside the home Alcohol Use Standard Drinks/Week Comments Not Currently 0 (1 standard drink = 0.6 oz pur e alcohol) rarely PHQ-2 Answer Date Recorded PHQ-2 TOTAL SCORE 3 06/24/2023 Social Connections Answer Date Recorded Frequency of Communication with Friends and Fami ly 0 06/24/2023 Financial Resource Strain Answer Date R ecorded Difficulty of Paying Living Expenses 3 06/24/2023 Difficulty of Paying Living Expenses Not on file 06/24/2023 Food Insecurity Answer Date Recorded Worried About Running Out of Food in the Last Ye ar 1 06/24/2023 Transportation Needs Answer Date Record ed Lack of Transportation (Medical) 1 06/24/2023 Housing Stability Answer Date Recorded Unable to Pay for Housing in the Last Year 1 06/24/2023 Sex and Gender Information Value Date Recorded Sex Assigned at Not on file Gender Identity Not on file Sexual Orientation Not on file Obstetrics History Para Term AB IAB SAB Ectopic Multiple Livin g Live Births 2 2 2 0 0 0 0 0 0 2 Date Outcome GA Total Labor Labor/2nd/3rd Weight Sex Delivery Anes PTL Mattie A1 A5 Name Cl in Term Term Last Filed Vital Signs Vital Sign Reading Time Taken Comments Blood Pressure 132/50 11/04/2023 10:28 AM CDT Pulse 91 11/04/2023 10:28 AM CDT Temperature 36.6 ??C (97.8 ??F) 09/13/2023 7:39 AM CS T Respiratory Rate 16 11/04/2023 10:28 AM CDT Oxygen Saturation 100% 10/08/2023 11:23 AM CDT Inhaled Oxygen Concentration - - Weight 100.7 kg (222 lb) 11/04/2023 10:28 AM CDT Height 157.5 cm (5' 2) 11/04/2023 10:28 AM CDT Body Mass Index 40.6 11/04/2023 10:28 AM CDT Plan of Treatment Upcoming Encounters Date Type Department Care Team (Late st Contact Info) Description 03/11/2024 10:45 AM CDT Orders Only [facility] [address] [place] [address] Lab, [place] 03/18/2024 10:50 AM CDT Office Visit [facility] [address] [place], [place] [id number] Jeyson Borjas MD [address] [place] [address] 04/14/2024 1:20 PM CDT Office Visit [facility] [place] [facility] [address] [place], [place] [id number] [place] [address] [address] [place], [place] [phone] Health Maintenance Due Date Last Done Comments DEXA/DXA scan for age 65+ 2015 06/01/2008 Medicare Wellness for age 65+ 10/27/2023 10/26/2022 COVID-19 vaccine series ( season) 2024 11/10/2023, 06/16/2023, 06/18/2022, Additional history exists Influenza for age 65+ 2024 05/22/2023 , 05/04/2022, 05/25/2021, Additional history exists Mammogram for age 45-75 04/03/2024 04/03/20 23, 12/18/2021, 01/22/2019, Additional history exists Depression screening for age 12+ 06/25/2024 06/25/2023, 06/24/2023, 10/26/2022, Additional history exists BMI (ht and wt on same day) for age 18+ 11/03/2024 11/04/2023, 09/06/2023, 10/26/2022, Additional history exists Colonoscopy through age 75 07/04/202607/04, 07/04/2021, 07/04/2021, Additional history exists Lipids for age 45-75 06/24/2028 06/24/2023, 12/28/2020, 01/08/2020, Additional history exists Tetanus booster 09/29/2028 09/29/2018, 10/2007, 05/31/2003 Tdap Completed 06/01/2008 Hepatitis C screening for ag e 18-79 Completed 05/21/2012 Pneumococcal series for age 65+ Completed 06/22/2016, 04/11/2015, 06/01/2008 Zoster (shingles) series for age 50+ Completed 01/22/2019, 11/11/2018, 02/07/2012 Procedures Procedure Name Priority Date/Time Associated Diagnosis Comments THYROGLOBULIN BY LCMS [id number] Routine 11/04/2023 11:25 AM CDT Papillary thyroid carcinoma (HC) THYROGLOBULIN ANTIBODY AND THYROGLOBULIN RADHA OR LCMS Routine 11/04/2023 11:25 AM CDT Papillary thyroid carcinoma (HC) T4,FREE Routine 11/04/2023 11:25 AM CDT Papillary thyroid carcinoma (HC) TSH Routine 11/04/2023 11:25 AM CDT Papillary thyroid carcinoma (HC) CALCIUM Routine 10/08/2023 12:12 PM CDT Hypercalcemia HEMOGLOBIN A1C Routine 10/08/2023 11:09 AM CDT Type 2 diabetes mellitus with diabetic neuropathy, without long-term current use of insulin (HC) CALCIUM Routine 09/18/2023 1:59 PM TAG METER OPERATOR Papillary thyroid carcinoma (HC) LIPID PANEL W REFLEX MEASURED LDL Routine 06/24/2023 1:43 PM TAG METER OPERATOR Hyperlipidemia LDL goal < 100 XR MAMMO BILAT SCREENING Routine 04/03/2023 11:51 AM CDT Visit for screening mammogram COLONOSCOPY 07/04/2021 9:56 AM TAG METER OPERATOR ANTI HCV Routine 05/21/2012 9:52 AM CDT Rheumatoid arthritis (HC) XR DXA BONE DENSITY 2 SITES AXIAL Routine 06/01/2008 9:10 AM TAG METER OPERATOR Screening for Osteoporosis from Last 3 Months or Most Recently Relevant to Health Maintenance Results * (ABNORMAL) THYROGLOBULIN BY LCMS [id number] (11/04/2023 11:25 AM CDT) Thyroglobulin by LCMS <0.2(L) 1.5 - 38.5 ng/mL 11/15/2023 1:10 PM CDT FOR ESOTERIC TESTING (CET) Comment: This test was developed and its performance characteristics determined by [facility]. It has not been cleared or approved by the Food and Drug Administration. According to the National Academy of Clinical Biochemistry, the reference interval for Thyroglobulin (TG) should be related to euthyroid patients and not for patients who underwent thyroidectomy. TG reference intervals for these patients depend on the residual mass of the thyroid tissue left after surgery. Establishing a post-operative baseline is recommended. The assay limit of quantitation is 0.2 ng/mL Blood BLOOD SPECIMEN / Unknown Butterfly / Unknown 11/04/2023 11:25 AM CDT 11/04/2023 11:28 AM CDT Narrative FOR ESOTERIC TESTING (CET) - 11/15/2023 1:10 PM CDT Performed at: ??[address] ??[id number] Auto Inspector: Karla Fischer MD, Phone: ??[phone] Jeyson Borjas MD SEND OUTS FOR ESOTERIC TESTING (CET) [address] [place] [address], * (ABNORMAL) THYROGLOBULIN ANTIBODY AND THYROGLOBULIN RADHA OR LCMS (11/04/2023 11:25 AM CDT) Pathologist [facility] TgAb+Thyroglobulin ,RADHA or LCMS 2.2(H) 0.0 - 0.9 IU/mL 11/15/2023 1:10 PM CDT [facility] ESOTERIC TEST[facility] ([facility]) Comment: Thyroglobulin Antibody measured by [facility] Methodology It should be noted that the presence of thyroglobulin antibodies may not be pathogenic nor diagnostic, especially at very low levels. The assay chief dispatcher has found that four percent of individuals without evidence of thyroid disease or autoimmunity will have positive TgAb levels up to 4 IU/mL. Blood BLOOD SPECIMEN / Unknown Butterfly / Unknown 11/04/2023 11:25 AM CDT 11/04/2023 11:28 AM CDT Narrative [facility] ESOTERIC TESTING (CET) - 11/15/2023 1:10 PM CDT Performed at: ??[address], [place], [place] ??[id number] Auto Inspector: KEVIN Montgomery MD, Phone: ??[phone] Jeyson Borjas MD SEND OUTS [facility] ESOTERIC TESTING ([facility]) [address] [place] [address], * (ABNORMAL) TSH (11/04/2023 11:25 AM CDT) [facility] TSH 0.01(L) 0.27 - 4.20 uIU/mL 11/04/2023 12:[address] [facility] Blood BLOOD SPECIMEN / Unknown Butterfly / Unknown 11/04/2023 11:25 AM CDT 11/04/2023 11:28 AM CDT [facility] - 11/04/2023 12:52 PM CDT In Adults, TSH values between 5.00 and 10.00 uIU/ml do not necessarily indicate the presence of Hypothyroidism. Correlation with clinical findings such as presence of goiter and/or Thyroperoxidase (TPO) Antibody may be helpful. For more information please refer to NARENDRA 2004; 291: 228-238. Jeyson Borjas MD CHEMISTRY [facility] SENDOUT INTERNAL [address] [phone] [place] [address] * (ABNORMAL) T4,FREE (11/04/2023 11:25 AM CDT) T4,FREE 2.25(H) 0.93 - 1.70 ng/dL 11/04/2023 12:[address] [facility] Blood BLOOD SPECIMEN / Unknown Butterfly / Unknown 11/04/2023 11:25 AM CDT 11/04/2023 11:28 AM CDT Jeyson Borjas MD CHEMISTRY Performing Organization Address [facility]/ZIP Co de Phone Number [facility] SENDOUT INTERNAL ZIP [address] [address] [place] [address] * CALCIUM (10/08/2023 12:12 PM CDT) Only the most recent of2 resultswithin the time period is included. CALCIUM 9.6 8.8 - 10.2 mg/dL 10/08/2023 9:30 PM CDT [facility] Blood BLOOD SPECIMEN / Unknown Butterfly / Unknown 10/08/2023 12:12 PM CDT 10/08/2023 12:14 PM CDT Jessy Avilez DO CHEMISTRY [facility] [address] [place] [address], * (ABNORMAL) HEMOGLOBIN A1C MONITORING (POCT) (10/08/2023 11:09 AM CDT) HEMOGLOBIN A1C MONITORING (POCT) 9.3(H) <=6.4 % 10/08/2023 11:24 AM CDT [facility] Blood BLOOD SPECIMEN / Unknown Capillary / Unknown 10/08/2023 11:09 AM CDT 10/08/2023 11:09 AM CDT Narrative [facility] - 10/08/2023 11:24 AM CDT ? (<=6.9%) ? Indicates good control ? (7.0% to 7.9%) ? Indicates fair control ? (>=8.0%) ? Indicates poor control ?? NOTE: ??These thresholds are guidelines and ?individual targets may vary. Falsely low levels may be seen with: Recent Transfusion, Recent Significant Blood Loss, Hemolytic Diseases, or Falsely elevated levels may be seen with: Untreated Anemias, Splenectomy ? Jessy Avilez DO CHEMISTRY [facility] [address] [place] [address], * (ABNORMAL) LIPID PANEL W REFLEX MEASURED LDL (06/24/2023 1:43 PM TAG METER OPERATOR) CHOLESTEROL,TOTAL 173 100 - 199 mg/dL 06/24/2023 9:37 PM [facility] Comment: Cholesterol, Total Reference Ranges Desirable <200 mg/dL Borderline 200-239 mg/dL High >=240 mg/dL TRIGLYCERIDES 225(H) <150 mg/dL 06/24/2023 9:37 PM TAG METER OPERATOR [facility] HDL CHOLESTEROL 39(L) >40 mg/dL 9:37 PM TAG METER OPERATOR [facility] NON-HDL CHOLESTEROL 134 <145 mg/dl 06/24/2023 9:37 PM TAG METER OPERATOR [facility] CHOL/HDL RATIO 4.44 <4.50 06/24/2023 9:37 PM TAG METER OPERATOR [facility] LDL CHOLESTEROL 89 <=130 mg/dL 06/24/2023 9:37 PM TAG METER OPERATOR [facility] VLDL CHOLESTEROL 45(H) <=30 mg/dL 06/24/2023 9:37 PM TAG METER OPERATOR [facility] PROVIDER ORDERED STATUS RANDOM 06/24/2023 9:37 PM TAG METER OPERATOR [facility] Blood BLOOD SPECIMEN / Unknown Butterfly / Unknown 06/24/2023 1:43 PM TAG METER OPERATOR 06/24/2023 1:46 PM TAG METER OPERATOR Jessy Avilez DO CHEMISTRY [facility] [address] [place] [address], * XR MAMMO BILAT SCREENING (04/03/2023 11:51 AM CDT) Anatomical Region Laterality Modality BREASTS, Breast Left, Breast Right Bilateral Mammography Impressions 04/03/2023 2:20 PM CDT ??There is no radiographic evidence for malignancy. ??Recommend annual mammograms. MAMMOGRAM ASSESSMENT: ??ACR 1 Negative PATIENTS: You will also receive a letter with your examination results in an easy to read format. ??If you have questions about your results, please contact your referring provider. Narrative 04/03/2023 2:20 PM CDT For Patients: As a result of the Century Cures Act, medical imaging exams and procedure reports are released immediately into your electronic medical record. You may view this report before your referring provider. If you have questions, please contact your health care provider. XR MAMMO BILAT SCREENING [[id number]] CLINICAL HISTORY: ??This is an asymptomatic 73 y.o. patient. INDICATION FOR EXAM: Mammogram Screening. TECHNIQUE: CC & MLO views were obtained. ??This study was evaluated with the assistance of Computer-Aided Detection. COMPARISON FILM: Yes 12/18/21 [place] 01/22/19 [email or web address] FINDINGS: ??The breasts are almost entirely fatty. There are no dominant masses, suspicious micro calcifications or areas of architectural distortion. Jessy Avilez DO MAMMO * COLONOSCOPY (07/04/2021 9:56 AM TAG METER OPERATOR) 07/04/2021 9:56 AM TAG METER OPERATOR Narrative Transcriptions Armand Wadsworth MD - 07/04/2021 10:52 AM CST Patient Name: Kimberyl Parker Procedure Date: 07/04/2021 Gender: Female Date of : 1950 Admit Type: Outpatient Procedure: Colonoscopy Proceduralist: Armand Wadsworth MD , Alena Reina RN(Nurse) Indications/Pre-Op Diagnosis: Surveillance: Personal history ofadenomatous polyps on last colonoscopy 5 years ago, Last colonoscopy: January 2016, Family history ofcolon cancer in a first-degree relative before age60 years Medications: Fentanyl 100 micrograms IV, Midazolam 2 mgIV, The level of sedation administered wasmoderate Procedure Description: The patient had risks, benefits and alternatives explained to andgave informed consent. The patient had a stable cardiopulmonary status and judged an adequate candidate for conscious sedation. The Colonoscope was passed through the anus and advanced to thececum, identified by appendiceal orifice and ileocecal valve. Thecolonoscopy was performed without difficulty. The patient tolerated the procedure well. The quality of the bowel preparation was good. The ileocecal valve, appendiceal orifice, and rectum were photographed. Complications: No immediate complications. Estimated Blood Loss & Specimen: Estimated blood loss: none. Specimen collected - Yes and sent to Laboratory Findings: The perianal and digital rectal examinations were normal. A 2 mm polyp was found in the ascending colon. The polyp was sessile. The polyp was removed with a cold biopsy forceps. Resection and retrieval were complete. A 3 mm polyp was found in the ascending colon. The polyp was sessile. The polyp was removed with a cold snare. Resection and retrieval were complete. The colon (entire examined portion) was moderately redundant. The exam was otherwise without abnormality on direct and retroflexion views. Impressions/Post-Op Diagnosis: - One 2 mm polyp in the ascending colon, removed with a cold biopsy forceps. Resected and retrieved. - One 3 mm polyp in the ascending colon, removed with a cold snare. Resected and retrieved. - Redundant colon. - The examination was otherwise normal on direct and retroflexionviews. Recommendation: - Patient has a contact number available for emergencies. The signsand symptoms of potential delayed complications were discussed with the patient. Return to normal activities tomorrow. Written discharge instructions were provided to the patient. - Resume previous diet. - Continue present medications. - Await pathology results. - Repeat colonoscopy in 5 years [facility]. Moderate Sedation: Moderate (conscious) sedation was administered by the endoscopy nurse and supervised by the endoscopist. The following parameters were monitored: oxygen saturation, heart rate, respiratory rate, blood pressure, adequacy of pulmonary ventilation and reponse to care. Please refer to the patient's medical record flowsheets and nursing notes for moderate sedation details. Total physician intraservice time was 26 minutes. Armand Wadsworth MD 07/04/2021 10:52:01 AM This report has been signed electronically. Note Initiated On: 07/04/2021 9:56 AM Procedure Code(s): --- Professional --- 10475, Colonoscopy, flexible; with removalof tumor(s), polyp(s), or other lesion(s) bysnare technique 88135, 59, Colonoscopy, flexible; withbiopsy, single or multiple Diagnosis Code(s): --- Professional --- Z86.010, Personal history of colonicpolyps K63.5, Polyp of colon Z80.0, Family history of malignant neoplasmof digestive organs Q43.8, Other specified congenitalmalformations of intestine CPT copyright 2020 [employer]. All rights reserved. The codes documented in this report are preliminary and upon mill work reviewmay be revised to meet current compliance requirements. Scope In: 10:16:52 AM Scope Withdrawal Time 0 hours 13 minutes 10 seconds Scope Out: 10:41:46 AM Armand Wadsworth MD PROCEDURE ORD * ANTI HCV (05/21/2012 9:52 AM CDT) ANTI HCV Non-reacti ve [facility] Blood specimen (specimen) BLOOD SPECIMEN / Unknown 05/21/2012 9:52 AM CDT 05/21/2012 9:35 AM CDT Radha Trevino MD SEND OUTS [facility] INTERNAL ZIP [id number] [place] [address] [id number] * XR DEXA BONE DENSITY 2 SITES (06/01/2008 9:10 AM TAG METER OPERATOR) Anatomical Region Laterality Modality Spine, HIPS, HIPL, HIPR Other 06/01/2008 9:10 AM TAG METER OPERATOR Narrative 06/07/2008 9:01 AM TAG METER OPERATOR Please see scanned document for results of this study. Procedure Note Gissell Katz - 06/10/2008 Please see scanned document for results of this study. Ema Parsons MD DEXA from Last 3 Months or Most Recently Relevant to Health Maintenance Advance Directives Documents on File Type Date Recorded Patient Medical Practitioners Expl anation Healthcare Directive 09/12/2023 12:30 PM * Full Code (Latest Code Status on File) Date Activated Date Inactivated Comments 09/12/2023 12:23 PM 09/13/2023 7:21 PM Question Answer Comments Code Status Discussion: Reviewed Preferences * Full Code Date Activated Date Inactivated Comments 03/24/2020 12:39 PM 03/25/2020 2:08 AM Question Answer Comments Code Status Discussion: Not Discussed * Full Code Date Activated Date Inactivated Comments 07/04/2012 8:37 AM 07/05/2012 2:07 AM * Full Code Date Activated Date Inactivated Comments 08/12/2009 3:55 PM 08/12/2009 11:48 PM Care Teams Substance Addiction Coordinator Relationship Specialty Start Date End Date Jessy Avilez DO [address] [place] [address] PCP - General Family Practice 02/21/23
[2023-12-14 22:40] VITALS: BP 123/71; PULSE 81; RESP 16; O2SAT 97
[2023-12-14 22:58] LABS: Chloride* 102 mmol/L (96-114); Potassium* 3.5 mmol/L (3.6-5.1); Sodium* 138 mmol/L (135-149)
[2023-12-14 23:01] LABS: Anion Gap 10 mEq/L (7-15); Blood Urea Nitrogen* 28 mg/dL (7-30); Carbon Dioxide* 26 mmol/L (20-32); Creatinine* 1.2 mg/dL (0.5-1.5); Est. Creatinine Clearance* 34.54; Estimated Glomerular Filt Rate 48 ml/min; Glucose* 207 mg/dL (60-115)
[2023-12-15 00:02] LABS: Basophils Percent Auto 0.5 % (0.0-3.0); Eosinophils Percent Auto 1.1 % (0.0-7.0); Hematocrit 38.2 % (33.0-51.0); Hemoglobin* 12.2 gm/dL (12.0-16.0); Immature Granulocytes Pct Auto 0.6 %; Lymphocytes Percent Auto 12.1 % (20-44); Mean Corpuscular HGB Conc 32 gm/dL (32-36); Mean Corpuscular Hemoglobin 27 pg (26-34); Mean Corpuscular Volume 86 fL (80-100); Monocytes Percent Auto 7.5 % (0.0-11.0); Neutrophils Percent Auto 78.2 % (42.0-72.0); Platelet Count* 356 K/uL (140-440); RDW Coefficient of Variation % 13.7 % (11.5-15.5); Red Blood Count 4.47 m/uL (4.00-5.20); White Blood Count* 13.25 K/uL (4.50-11.00)
[2023-12-15 00:04] LABS: Slide Review Reflex No
[2023-12-15 00:16] LABS: Free T4 Free Thyroxine* 1.73 ng/dL (0.70-1.85)
== END 2023-12-14 22:44 | disposition home or self-care (01) ==
LOC: ED 22:17
PROVIDERS: Emergency Provider Internal Medicine; PCP Family Medicine
DX: R53.83 Other fatigue (principal)
CPT/HCPCS: 36415; 80048; 84439; 84443; 85025; 99283

== ENCOUNTER 2024-01-14 12:46 | Outpatient (CLI) | payer MEDICARE, SELFPAY ==
--- OUTSIDE RECORDS SUMMARY | 2024-01-14 12:49 | XMS_ITS | Clinical Summary ---
Author Organization [facility] Address [place], [place] [address] Care Team Providers Care Meat Grading Machine Operator Name Role Phone Jessy Avilez DO Primary Care Provider [phone] Allergies Active Allergy Reactions Criticality Noted Date [...] Tablet 3 07/25/2023 Active blood sugar diagnostic ([employer]Touch Ultra Test) stripIndications:T ype 2 diabetes mellitus [...] for Muscle Spasm. 15 Tablet 09/18/2023 Active dorzolamide (TRUSOPT) 2 % ophthalmic solutionIndication s:Pigmentary glaucoma of right eye, indeterminate stage Place 1 Drop into both eyes two times daily. 10 mL 12/12/2023 Active levothyroxine (Synthroid) 112 mcg tabletIndications: Papillary thyroid carcinoma (HC) Take 1 Tablet (112 mcg) by mouth before breakfast. 90 Tablet 12/16/2023 Active SITagliptin phosphate (JANUVIA) 100 mg tabletIndications: Type 2 diabetes mellitus with diabetic neuropathy, without long-term current use of insulin (HC) Take 1 Tablet (100 mg) by mouth once daily. 90 Tablet 3 12/19/2023 Active SITagliptin phosphate (JANUVIA) 100 mg tabletIndications: Type 2 diabetes mellitus with diabetic neuropathy, without long-term current use of insulin (HC) Take 1 Tablet (100 mg) by mouth once daily. 90 Tablet 09/27/2023 12/19/19 24 Discontinu ed(Reorder (E-cancel not sent)) semaglutide (Ozempic) 2 mg/3 mL penIndications:Typ e 2 diabetes mellitus with diabetic neuropathy, without long-term current use of insulin (HC) Inject 0.375 mL (0.25 mg) subcutaneous once weekly for 28 days, THEN 0.75 mL (0.5 mg) once weekly for 28 days. 3 mL 11/06/2023 12/19/19 24 Discontinu ed(*Med complete/R egimen complete/L evel of care change) semaglutide (OZEMPIC) 1 mg/dose (4 mg/3 mL) penIndications:Typ e 2 diabetes mellitus with diabetic neuropathy, without long-term current use of insulin (HC) Inject 1 mg subcutaneous once weekly for 28 days. 3 mL 01/01/2024 12/19/19 24 Discontinu ed(*Med complete/R egimen complete/L evel of care change) semaglutide (Ozempic) 2 mg/dose (8 mg/3 mL) penIndications:Typ e 2 diabetes mellitus with diabetic neuropathy, without long-term current use of insulin (HC) Inject 0.75 mL (2 mg) subcutaneous once weekly. 9 mL 3 01/29/2024 12/19/19 24 Discontinu ed(*Med complete/R egimen complete/L evel of care change) levothyroxine (Synthroid) 137 mcg tabletIndications: Papillary thyroid carcinoma (HC) Take 1 Tablet (137 mcg) by mouth before breakfast. 90 Tablet 3 11/07/2023 12/16/19 Discontinu ed(*Medica tion adjustment ) Active Problems Problem Noted Date Diagnosed Date [...] - will be seeing pulmonology on 06/11 ([facility]) Pulmonary nodules 06/05/2012 Overview: CT 11/2014 [...] 08/12/2009 Chest pain 08/12/2009 Overview: Angiogram at [place] Normal 07/2009 GERD (gastroesophageal reflux disease) 0 [...] Previously on Methotrexate - liver abnormalities. Saw [facility] at [facility] Vitreous degeneration 01/08/2006 Overview: R Hyperlipidemia LDL goal < 100 Encounters Date Type Department Care Team Description 12/19/2023 10:35 AM CDT Office Visit [facility] [address] [facility] [place] [address] Jessy Avilez, DO ER Follow up (TSH extremely low, possible side effects from Ozempic) 12/19/2023 Telephone [facility] [address] [facility] [place] [address] Raghav Jessy Mattie, DO Results 12/19/2023 Travel 12/15/2023 Telephone [facility] [address] [place] [address] Sir Avilezi Mattie, DO Concerns 12/14/2023 Nurse Triage [facility] [address] [place] [address] Sir Avilezi Mattie, DO 12/12/2023 1:40 PM CDT Office Visit [facility] [address] [place] [address] David Mehta, OD Follow Up (DM 4 Month IOP Ck ) 12/12/2023 Travel 11/22/2023 1:00 PM CDT Patient Outreach [facility] [address] [place] [phone] Juanis Hinson machine erector (Med management F/U) 11/22/2023 Travel 11/15/2023 Telephone [facility] [address] [place] [address] Sir Avilezi Mattie, DO Referral (Video swallow study) 11/15/2023 Telephone [facility] [address] [place] [address] Sir Avilezi Mattie, DO OTHER 11/08/2023 Telephone [facility] [address] [place] [address] Sir Avilezi Mattie, DO Questions (voice therapy) 11/08/2023 Telephone [facility] [address] [place] [address] Jessy Avilez Mattie, DO orders 11/07/2023 Telephone [facility] [address] [place] [address] Jeyson Borjas MD Phone Visit 11/05/2023 Telephone [facility] [address] [place] [address] Sir Avilezi Mattie, DO Follow Up 11/04/2023 10:30 AM CDT Office Visit [facility] [address] [place] [address] Jeyson Borjas MD Consult (thyroid) 11/04/2023 Travel 10/14/[address] [facility] [address] [place] [address] David Mehta, OD Refill Request (Dorzolamide) from Last 3 Months Immunizations Name Administration Dates Next Due AMB INFLUENZA IIV3 (AGE 65+ YRS) PF (Flu Clinic Only) 06/11/2017 COVID-19 vaccine ([employer] NTech 30mcg/0.3mL) PF, V 05/03/2021,10/21/2020,09/30/2020 Influenza A (H1N1), Inactiva bina (Age [...] Outcome GA Total Labor Labor/2nd/3rd Weight Sex Type Anes PTL Mattie A1 A5 Name Clin Term Term Last Filed Vital Signs Vital Sign Reading Time Taken Comments Blood Pressure 153/73 12/19/2023 10:37 AM CDT Pulse 93 12/19/2023 10:37 AM CDT Temperature 36.6 ??C (97.8 ??F) 09/13/2023 7:39 AM CS T Respiratory Rate 16 11/04/2023 10:28 AM CDT Oxygen Saturation 97% 12/19/2023 10:37 AM CDT Inhaled Oxygen Concentration - - Weight 98 kg (216 lb) 12/19/2023 10:37 AM CDT Height 157.5 cm (5' 2) 11/04/2023 10:28 AM CDT Body Mass Index 39.51 11/04/2023 10:28 AM CDT Plan of Treatment Upcoming Encounters Date Type Department Care Team (Late st Contact Info) Description 01/14/2024 1:00 PM CDT Ancillary Procedure [facility] [address] [facility] [place] [address] 01/22/2024 12:55 PM CDT Office Visit [facility] [address] [place] [address] Jessy Avilez, DO [address] [place] [address] 03/11/2024 10:45 AM CDT Orders Only [facility] [address] [place] [address] Lab, [place] 03/18/2024 10:50 AM CDT Office [facility] [address] [place] [address] Jeyson Borjas MD [address] [place] [address] 04/14/2024 1:20 PM CDT Office Visit [facility] [address] [facility] [address] [place], [place] [phone] [place] [address] [address] [facility] [place] [address] Health Maintenance Due Date Last Done Comments [...] Procedure Name Priority Date/Time Associated Diagnosis Comments CBC WITH AUTO DIFFERENTIAL Routine 12/19/2023 11:48 AM CDT Dysuria CBC WITH AUTO DIFFERENTIAL Routine 12/19/2023 11:48 AM CDT Dysuria UA W/ SEDIMENT EXAM REFLEXED PER CRITERIA Routine 12/19/2023 11:24 AM CDT Dysuria SCAN CORRESP-LABORATORY RESULTS 12/16/2023 10:03 AM CDT SCAN CORRESP-LABORATORY RESULTS 12/16/2023 9:58 AM CDT THYROGLOBULIN BY LCMS [id number] Routine 11/04/2023 11:25 AM CDT Papillary thyroid carcinoma (HC) THYROGLOBULIN ANTIBODY AND THYROGLOBULIN RADHA OR LCMS Routine 11/04/2023 11:25 AM CDT Papillary thyroid carcinoma (HC) T4,FREE Routine 11/04/2023 11:25 AM CDT Papillary thyroid carcinoma (HC) TSH Routine 11/04/2023 11:25 AM CDT Papillary thyroid carcinoma (HC) LIPID PANEL W REFLEX MEASURED LDL Routine 06/24/2023 1:43 PM SHOPPING INVESTIGATOR Hyperlipidemia LDL goal < 100 XR MAMMO BILAT SCREENING Routine 04/03/2023 11:51 AM CDT Visit for screening mammogram COLONOSCOPY 07/04/2021 9:56 AM SHOPPING INVESTIGATOR ANTI HCV Routine 05/21/2012 9:52 AM CDT Rheumatoid arthritis (HC) XR DXA BONE DENSITY 2 SITES AXIAL Routine 06/01/2008 9:10 AM SHOPPING INVESTIGATOR Screening for Osteoporosis from Last 3 Months or Most Recently Relevant to Health Maintenance Results * (ABNORMAL) CBC WITH AUTO DIFFERENTIAL (12/19/2023 11:48 AM CDT) [facility] WHITE BLOOD COUNT 10.4 4.5 - 11.0 thou/cu mm 12/19/2023 12:02 PM CDT [facility] RED BLOOD COUNT 4.82 4.00 - 5.20 mil/cu mm 12/19/2023 12:02 PM CDT [facility] HEMOGLOBIN 13.3 12.0 - 16.0 g/dL 12/19/2023 12:02 PM CDT [facility] HEMATOCRIT 40.3 33.0 - 51.0 % 12/19/2023 12:02 PM CDT [facility] MCV 84 80 - 100 fL 12/19/2023 12:02 PM CDT [facility] MCH 27.6 26.0 - 34.0 pg 12/19/2023 12:02 PM CDT [facility] MCHC 33.0 32.0 - 36.0 g/dL 12/19/2023 12:02 PM CDT [facility] RDW 14.2 11.5 - 15.5 % 12/19/2023 12:02 PM CDT [facility] PLATELET COUNT 379 140 - 440 thou/cu mm 12/19/2023 12:02 PM CDT [facility] MPV 9.8 6.5 - 11.0 fL 12/19/2023 12:02 PM CDT [facility] % NEUT 72.6 % 12/19/2023 12:02 PM CDT [facility] % LYMPH 17.3 % 12/19/2023 12:02 PM CDT [facility] % MONO 8.4 % 12/19/2023 12:02 PM CDT [facility] % EOS 1.3 % 12/19/2023 12:02 PM CDT [facility] % BASO 0.4 % 12/19/2023 12:02 PM CDT [facility] ABSOLUTE NEUTROPHILS 7.6(H) 1.7 - 7.0 thou/cu mm 12/19/2023 12:02 PM CDT [facility] ABSOLUTE LYMPHOCYTES 1.8 0.9 - 2.9 thou/cu mm 12/19/2023 12:02 PM CDT [facility] ABSOLUTE MONOCYTES 0.9(H) <0.9 thou/cu mm 12/19/2023 12:02 PM CDT [facility] ABSOLUTE EOSINOPHILS 0.1 <0.5 thou/cu mm 12/19/2023 12:02 PM CDT [facility] ABSOLUTE BASOPHILS 0.0 <0.3 thou/cu mm 12/19/2023 12:02 PM CDT [facility] Blood BLOOD SPECIMEN / Unknown Venipuncture / Unknown 12/19/2023 11:48 AM CDT 12/19/2023 11:48 AM CDT Jessy Avilez DO HEMATOLOGY [facility] [address] [place] [address], * (ABNORMAL) UA W/ SEDIMENT EXAM REFLEXED PER CRITERIA (12/19/2023 11:24 AM CDT) COLOR Yellow Yellow Color 12/19/2023 11:54 AM CDT [facility] CLARITY Clear Clear Clarity 12/19/2023 11:54 AM CDT [facility] SPECIFIC GRAVITY,URINE >=1.030(A) 1.010, 1.015, 1.020, 1.025 12/19/2023 11:54 AM CDT [facility] PH,URINE 5.5 6.0, 7.0, 8.0, 5.5, 6.5, 7.5, 8.5 12/19/2023 11:54 AM CDT [facility] UROBILINOGEN, QUALITATIVE Normal Normal EU/dl 12/19/2023 11:54 AM CDT [facility] PROTEIN, URINE Trace(A) Negative mg/dL 12/19/2023 11:54 AM CDT [facility] GLUCOSE, URINE Negative Negative mg/dL 12/19/2023 11:54 AM CDT [facility] KETONES,URINE Negative Negative mg/dL 12/19/2023 11:54 AM CDT [facility] BILIRUBIN,URI NE Negative Negative 12/19/2023 11:54 AM CDT [facility] OCCULT BLOOD,URINE Negative Negative 12/19/2023 11:54 AM CDT [facility] NITRITE Negative Negative 12/19/2023 11:54 AM CDT [facility] LEUKOCYTE ESTERASE Negative Negative 12/19/2023 11:54 AM CDT [facility] Urine URINE SPECIMEN / Unknown Non-Blood / Unknown 12/19/2023 11:24 AM CDT 12/19/2023 11:52 AM CDT Jessy Avilez DO URINE [facility] [address] [place] [address], * SCAN CORRESP-LABORATORY RESULTS (12/16/2023 10:03 AM CDT) Only the most recent of2 resultswithin the time period is included. Narrative 12/16/2023 10:03 AM CDT Ordered by an unspecified provider. Other Clinical Staff OTHER * (ABNORMAL) THYROGLOBULIN BY LCMS [id number] (11/04/2023 11:25 AM CDT) Thyroglobulin by LCMS <0.2(L) 1.5 - 38.5 ng/mL 11/15/2023 1:10 PM CDT [facility]ERIC TEST[facility] ([facility]) Comment: This test was developed and its performance characteristics determined by [facility]. It has not been cleared or approved [...] AM CDT 11/04/2023 11:28 AM CDT Narrative [facility] ([facility]) - 11/15/2023 1:10 PM CDT Performed at: ??02 - [address] ??[id number] Shook Splicer: Karla Fischer MD, Phone: ??[phone] Jeyson Borjas MD SEND OUTS [facility]OTERIC TEST[facility] ([facility]) [address] [place], [place] [id number], * (ABNORMAL) THYROGLOBULIN ANTIBODY AND THYROGLOBULIN RADHA OR LCMS (11/04/2023 11:25 AM CDT) Pathologist [facility] TgAb+Thyroglobulin ,RADHA or LCMS 2.2(H) 0.0 - 0.9 IU/mL 11/15/2023 1:10 PM CDT [facility] FOR [facility]ERIC TEST[facility] ([facility]) Comment: Thyroglobulin Antibody measured by [employer] Methodology It should be noted that the presence of thyroglobulin antibodies may not be pathogenic nor diagnostic, especially at very low levels. The assay contract project manager has found that four percent of individuals without evidence of thyroid disease or autoimmunity will have positive TgAb levels up to 4 IU/mL. Blood BLOOD SPECIMEN / Unknown Butterfly / Unknown 11/04/2023 11:25 AM CDT 11/04/2023 11:[address] [facility] FOR ESOTERIC TESTING ([facility]) - 11/15/2023 1:10 PM CDT Performed at: ??01 - [facility] [address] [facility] [address], [place], [place] ??[id number] Shook Splicer: KEVIN Montgomery MD, Phone: ??[phone] Jeyson Borjas MD SEND OUTS Performing Organization Address [facility]/ZIP Co de Phone Number [facility] ([facility]) [address] [place] [address] * (ABNORMAL) TSH (11/04/2023 11:25 AM CDT) TSH 0.01(L) 0.27 - 4.20 uIU/mL 11/04/2023 12:52 PM CDT [facility] Blood BLOOD SPECIMEN / Unknown Butterfly / Unknown 11/04/2023 11:25 AM CDT 11/04/2023 11:28 AM CDT [facility] - 11/04/2023 12:52 PM CDT In Adults, TSH values between 5.00 and 10.00 uIU/ml do not necessarily indicate the presence of Hypothyroidism. Correlation with clinical findings such as presence of goiter and/or Thyroperoxidase (TPO) Antibody may be helpful. For more information please refer to NARENDRA 2004; 291: 228-238. Jeyson Borjas MD CHEMISTRY [facility] SENDOUT INTERNAL ZIP [address] [address] [place] [address] * (ABNORMAL) T4,FREE (11/04/2023 11:25 AM CDT) T4,FREE 2.25(H) 0.93 - 1.70 ng/dL 11/04/2023 12:48 PM CDT [facility] Blood BLOOD SPECIMEN / Unknown Butterfly / Unknown 11/04/2023 11:25 AM CDT 11/04/2023 11:28 AM CDT Jeyson Borjas MD CHEMISTRY [facility] SENDOUT INTERNAL ZIP [address] [place] [id number] * (ABNORMAL) LIPID PANEL W REFLEX MEASURED LDL (06/24/2023 1:43 PM SHOPPING INVESTIGATOR) CHOLESTEROL,TOTAL 173 100 - 199 mg/dL 06/24/2023 9:37 PM SHOPPING INVESTIGATOR [facility] Comment: Cholesterol, Total Reference Ranges Desirable <200 mg/dL Borderline 200-239 mg/dL High >=240 mg/dL TRIGLYCERIDES 225(H) <150 mg/dL 06/24/2023 9:37 PM SHOPPING INVESTIGATOR [facility] HDL CHOLESTEROL 39(L) >40 mg/dL 9:37 PM SHOPPING INVESTIGATOR [facility] NON-HDL CHOLESTEROL 134 <145 mg/dl 06/24/2023 9:37 PM SHOPPING INVESTIGATOR [facility] CHOL/HDL RATIO 4.44 <4.50 06/24/2023 9:37 PM SHOPPING INVESTIGATOR [facility] LDL CHOLESTEROL 89 <=130 mg/dL 06/24/2023 9:37 PM SHOPPING INVESTIGATOR [facility] VLDL CHOLESTEROL 45(H) <=30 mg/dL 06/24/2023 9:37 PM SHOPPING INVESTIGATOR [facility] PROVIDER ORDERED STATUS RANDOM 06/24/2023 9:37 PM SHOPPING INVESTIGATOR [facility] Blood BLOOD SPECIMEN / Unknown Butterfly / Unknown 06/24/2023 1:43 PM SHOPPING INVESTIGATOR 06/24/2023 1:46 PM SHOPPING INVESTIGATOR Jessy Avilez DO CHEMISTRY [facility] [address] [place] [address], [place] * XR MAMMO BILAT SCREENING (04/03/2023 11:51 [...] health care provider. XR MAMMO BILAT SCREENING [[id number]] CLINICAL HISTORY: ??This is an asymptomatic 73 y.o. patient. INDICATION FOR EXAM: Mammogram Screening. TECHNIQUE: CC & MLO views were obtained. ??This study was evaluated with the assistance of Computer-Aided Detection. COMPARISON FILM: Yes 12/18/21 [facility] 01/22/19 [facility] FINDINGS: ??The breasts are almost entirely fatty. There are no dominant masses, suspicious micro calcifications or areas of architectural distortion. Jessy Mattie Bakarijelly DO MAMMO * COLONOSCOPY (07/04/2021 9:56 AM SHOPPING INVESTIGATOR) 07/04/2021 9:56 AM SHOPPING INVESTIGATOR Narrative Transcriptions Armand Wadsworth MD - 07/04/2021 10:52 AM CST Patient Name: Kimberly Parker Procedure Date: 07/04/2021 Gender: Female Date of : 1950 Admit Type: Outpatient Procedure: Colonoscopy Proceduralist: Armand Wadsworth MD , Alena Reina, RN(Nurse) Indications/Pre-Op Diagnosis: Surveillance: Personal history ofadenomatous [...] [facility]. Moderate Sedation: Moderate (conscious) sedation was administered [...] 9:56 AM Procedure Code(s): --- Professional --- 37166, Colonoscopy, flexible; with removalof tumor(s), polyp(s), or other lesion(s) bysnare technique 76644, 59, Colonoscopy, flexible; withbiopsy, single or multiple Diagnosis Code(s): --- Professional --- Z86.010, Personal history of colonicpolyps K63.5, Polyp of colon Z80.0, Family history of malignant neoplasmof digestive organs Q43.8, Other specified congenitalmalformations of intestine CPT copyright 2020 [employer]. All rights reserved. The codes documented in this report are preliminary and upon postmaster reviewmay be revised to meet current compliance requirements. Scope In: 10:16:52 AM Scope Withdrawal Time 0 hours 13 minutes 10 seconds Scope Out: 10:41:46 AM Armand Wadsworth MD PROCEDURE ORD * ANTI HCV (05/21/2012 9:52 AM CDT) ANTI HCV Non-reacti ve [facility] Blood specimen (specimen) BLOOD SPECIMEN / Unknown 05/21/2012 9:52 AM CDT 05/21/2012 9:35 AM CDT Radha Trevnio MD SEND OUTS [facility] INTERNAL ZIP [address] [address] [place] [address] * XR DEXA BONE DENSITY 2 SITES (06/01/2008 9:10 AM SHOPPING INVESTIGATOR) Anatomical Region Laterality Modality Spine, HIPS, HIPL, HIPR Other 06/01/2008 9:10 AM SHOPPING INVESTIGATOR Narrative 06/07/2008 9:01 AM SHOPPING INVESTIGATOR Please see scanned document for results of this study. Procedure Note Gissell Katz - 06/10/2008 Please see scanned document for results of this study. Ema Parsons MD DEXA from Last 3 Months or Most Recently Relevant to Health Maintenance Advance Directives Documents on File Type Date Recorded Patient Auto Refinisher Expl anation Healthcare Directive 09/12/2023 12:30 PM [...] 3:55 PM 08/12/2009 11:48 PM Care Teams Meat Grading Machine Operator Relationship Specialty Start Date End Date Jessy Avilez DO [address] [place] [address] PCP - General Family Practice 02/21/23
[2024-01-14] MEDS: SODIUM CHLORIDE 0.9 % (FLUSH) 10 ML SYRINGE IVF (13:25)
[2024-01-14] MEDS: PERFLUTREN LIPID MICROSPHERES 2 ML VIAL IV (13:26)
[2024-01-14 14:30] VITALS: BP 133/78
[2024-01-14] MEDS: DOBUTamine 250 MG in 5 % DEXTROSE 250 ML 230 ML 174 MG IVPB (14:38)
--- NOTE | 2024-01-14 14:51 | W.PM.STED ---
Stress Test Note Date Date of test: 01/14/24 Providers Primary care provider: Jessy Avilez Stress test physician: Ismael Ji Stress Test Note Stress test ordered: Dobutamine Echo Indication for test: Dyspnea on exertion Stress test medicine: Dobutamine Results discussion: This pleasant patient has for the above test, after discussion the risks benefits and side effects she would like to proceed, cardiac stress test medical history form is reviewed. Pretest EKG shows ventricular rate of 83 rhythm is sinus, blood pressure 137/77. Standard dobutamine protocol is done over a time course of 7 minutes 27 seconds. She received add maximum 30 mcg of dobutamine. Maximum blood pressure was 149 and 77, and maximum heart rate was 138 she tolerated this very well, she had no chest pain no shortness of breath, review of the tracing showed no dysrhythmias, there was no evidence of ST wave changes suggestive of ischemia. Impression: Negative electrographic portion of dobutamine echo, this was both subjectively and objectively negative. Follow up suggested: Await echo imaging reading by Cardiology, clinical correlation with this will be needed. Patient left this testing facility in excellent condition back to baseline
== END 2024-01-14 12:47 | disposition home or self-care (01) ==
LOC: STRESS 12:46
PROVIDERS: PCP Family Medicine; Visit Provider Family Medicine
DX: R06.09 Other forms of dyspnea (principal)
CPT/HCPCS: 93016; 93325; 93351; J1250; J7050; Q9957

== ENCOUNTER 2024-12-18 12:40 | Outpatient (CLI) | payer MEDICARE, SELFPAY ==
--- NOTE | 2024-12-18 13:00 | CRLHL7_ITS ---
For Patients: As a result of the Century Cures Act, medical imaging exams and procedure reports are released immediately into your electronic medical record. You may view this report before your referring provider. If you have questions, please contact your health care provider. Indication: Abdominal bloating Technique: Abdomen 2 view. Comparison: Outside CT 03/19/2023 Findings: Bowel: Bowel pattern is normal. The amount of colonic stool is within normal limits. Other: No sign of free air. No sign of soft tissue mass. No suspicious calcifications. Postop changes right upper quadrant. Rightward curvature of the upper lumbar spine. Discogenic spurring. Impression: No bowel obstruction. No evidence of ascites. Dictated by Stefan Gray MD @ 12/22/2024 9:36:32 AM (Electronically Signed)
== END 2024-12-18 12:41 | disposition home or self-care (01) ==
LOC: RAD 12:41
PROVIDERS: PCP Family Medicine; Visit Provider Student in an Organized Health Care Education/Training Program
DX: R14.0 Abdominal distension (gaseous) (principal); R19.4 Change in bowel habit; R10.84 Generalized abdominal pain
CPT/HCPCS: 74019

== ENCOUNTER 2025-04-02 11:15 | Outpatient (RCR) | payer MEDICARE, SELFPAY | END 2025-05-24 15:00 | disposition home or self-care (01) | PROVIDERS: PCP Family Medicine; Visit Provider Family Medicine | DX: M75.31 Calcific tendinitis of right shoulder (principal); Z51.89 Encounter for other specified aftercare | CPT/HCPCS: 97112; 97161 ==